=== PATIENT | male | born 1990 | race Caucasian/White ===

== ENCOUNTER 2025-01-18 14:41 | Outpatient (CLI) | payer OTHER, SELFPAY ==
--- NOTE | ~2025-01-18 | MR_ITS ---
EXAMINATION: MR brain/brain stem wo con DATE: 01/18/2025 15:31 INDICATION: Headaches TECHNIQUE: Magnetic resonance imaging (MRI) of the brain and brainstem was performed without intravenous contrast. COMPARISON: None. FINDINGS: No mass, mass effect or hemorrhage. Rizo-white signal pattern is intact. No restricted diffusion or acute ischemic event. Brainstem and cerebellum appear normal Vascular flow voids patent at skull base. Small, 1 to 2 cm mucous retention cyst and/or mucoceles in the dependent portion of the maxillary sinuses. The paranasal sinuses otherwise appear normal. Calvarial structures appear intact. IMPRESSION: 1. Small bilateral maxillary sinus mucoceles or mucous retention cysts. 2. Otherwise negative noncontrast enhanced brain MRI. Reviewed, dictated and finalized at location A. E REPAIRER
== END 2025-01-18 14:42 | disposition home or self-care (01) ==
LOC: GOSHIMG 14:41
PROVIDERS: PCP Family Medicine; Visit Provider Nurse Practitioner Family
DX: G43.119 Migraine with aura, intractable, without status migrainosus (principal); J34.1 Cyst and mucocele of nose and nasal sinus
CPT/HCPCS: 70551